=== PATIENT | male | born 1985 | race Hispanic/Latino ===

== ENCOUNTER 2016-11-26 00:38 | Emergency (ER) | payer OTHER ==
[~2016-11-26] VITALS: Ht 177.8 cm; Wt 79.5 kg
[2016-11-26 00:44] VITALS: BP 114/73; PULSE 102; RESP 18; O2SAT 96
--- NOTE | 2016-11-26 00:53 | ED.REPORT ---
HPI-General Illness Date of Service November 26, 2016 ED Provider: Chaitanya Gracia MD 31 year old homeless male with a history of polysubstance abuse and Hepatitis C presents to the ER via EMS after being found down at a local [employer] just prior to arrival. Patient endorses heavy alcohol consumption tonight. He does not voice any medical complaints. Nursing Notes Stated Complaint: ETOH INTOXICATION Chief Complaint: Substance Abuse Nursing Notes Reviewed: Yes Allergies: Coded Allergies: No Known Allergies (Unverified , 11/26/16) General Time Seen by MD: 00:52 Chief Complaint Other (Alcohol Intoxication) Hx Obtained From: EMS Arrived By: Ambulance Sudden in Onset?: No Onset Occurred: Just prior to arrival Pertinent Negative: Pt denies other symptoms Similar Sx Previous: Yes Past Medical History Past Medical History Hepatitis C Smoking History Current Every Day Smoker Social History Alcohol Use: >5 per day Drug Use: Cocaine, Meth, THC Other Social History: Homeless Review of Systems Unable to Obtain ROS Intoxicated Physical Exam Vital Signs Vital Signs Date Time Temp Pulse Resp B/P Pulse Ox O2 Delivery O2 Flow Rate FiO2 11/26/16 06:12 37.1 85 18 104/61 96 Room Air 11/26/16 00:44 36.1 102 18 114/73 96 Room Air Initial VS: Reviewed Head / Eyes: Atraumatic, Normocephalic Neck: Supple, Non-tender, Full range of motion Abdomen / GI: Soft, Non-tender, No guarding, No rebound, No distention Extremities: Vascular intact, Neuro intact, No swelling, No tenderness Skin: Warm, Dry, No cyanosis Neurologic: Alert, Oriented, Nonfocal General/Constitutional: No acute distress, Well developed Alertness: Positive: Sleeping but arousable Behavior: Positive: Appears intoxicated Appearance / Presentation: Positive: Intoxicated Smells of EtOH Respiratory / Chest: Breath sounds NL, No respiratory distress, No rales, No rhonchi, No wheezing Re-Eval/Medical Decision Med Decision/Clinical Course 2-year-old chronic alcoholism presents grossly intoxicated. He states he plans to continue drinking and has no interest in quitting. No other particular complaints. He was observed overnight while metabolizing his alcohol, and is discharged now stable condition. Sobriety advised but advice not wanted. Source of Hx: Old records Time of Eval: 05:52 Re-Evaluation/Progress Note: Discussed plan to discharge. Patient is amenable to the plan. Return precautions given. All other questions addressed. Counseled Regarding: Diagnosis, Lab results, Need for follow-up, When/why to return to ED Discharge & Departure Primary Impression: Alcohol abuse Additional Impression: Alcohol intoxication Disposition: Home Discharge Condition All VS Reviewed: Yes Condition: Stable Additional Instructions: Stop drinking. Get help with that if you need. Follow-up with your doctor in the office. Referrals: Osvaldo Zarco MD (PCP) Jae Attestation Portions of this note were transcribed by Tremaine Green. I, Dr. Gracia, personally performed the history, physical exam and medical decision-making; I reviewed and confirmed the accuracy of the information in the transcribed note. Signed by: Jae Parsons, 11/26/2016 at 05:52 copies to: Osvaldo Zarco MD, Christopher W MD November 26, 2016 00:53 TREMAINE GREEN November 26, 2016 01:01
[2016-11-26 06:12] VITALS: BP 104/61; PULSE 85; RESP 18; O2SAT 96
== END 2016-11-26 05:52 | disposition home or self-care (01) ==
LOC: SED 00:38
DX: F10.129 Alcohol abuse with intoxication, unspecified (principal); F15.10 Other stimulant abuse, uncomplicated; F14.10 Cocaine abuse, uncomplicated; F12.10 Cannabis abuse, uncomplicated; B18.2 Chronic viral hepatitis C; F17.210 Nicotine dependence, cigarettes, uncomplicated; Z59.0 Homelessness

== ENCOUNTER 2017-02-08 20:01 | Emergency (ER) | payer OTHER ==
[~2017-02-08] VITALS: Ht 172.7 cm; Wt 75.0 kg
[2017-02-08 20:09] VITALS: BP 145/84; PULSE 85; RESP 18; O2SAT 98
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
[2017-02-08] MEDS ORDERED: Ondansetron 2 mg/mL 2 mL Inj IVPUSH PRN (20:50)
[2017-02-08 21:15] LABS: BASOPHILS % (AUTO) 0.3 % (0-3); EOSINOPHILS % (AUTO) 7.1 % (0-5); MONOCYTES % (AUTO) 13.9 % (4-12); Mean Corpuscular Hemoglobin 28.1 pg (27.0-35.0); Mean Corpuscular Volume 85.8 fL (81-100); NEUTROPHILS % (AUTO) 51.8 % (40-74); Platelet Count 160 bil/L (150-400)
[2017-02-08 21:37] LABS: INR 0.89 ratio
[2017-02-08] MEDS ORDERED: Thiamine Inj 100 MG, Folic Acid Inj 1 MG, Magnesium Sulfate 50% Inj 2 GM, Multivitamins... IV ONE ×5 (21:50)
[2017-02-08 21:59] VITALS: BP 125/72; PULSE 73; RESP 16; O2SAT 97
[2017-02-08 22:40] LABS: Magnesium 1.7 mg/dL (1.6-2.6)
[2017-02-08 22:56] VITALS: BP 128/72; PULSE 72; RESP 20; O2SAT 98
[2017-02-09] MEDS ORDERED: _LORazepam 2 MG Tablet PO SCH (00:05)
[2017-02-09 00:26] VITALS: BP 115/50; PULSE 67; RESP 18; O2SAT 99
[2017-02-09 00:59] VITALS: BP 123/63; PULSE 65; RESP 14; O2SAT 99
[2017-02-09 02:20] VITALS: BP 133/86; PULSE 68; RESP 20; O2SAT 98
== END 2017-02-09 02:21 | disposition home or self-care (01) ==
LOC: SED 20:01
DX: F10.230 Alcohol dependence with withdrawal, uncomplicated (principal); K64.9 Unspecified hemorrhoids; F17.200 Nicotine dependence, unspecified, uncomplicated; Z59.0 Homelessness
CPT/HCPCS: 36415; 80053; 83690; 83735; 85025; 85610; 85730; 86850; 93005; 96365; 96366; 96375; 96376; 99285; J3360; J3475; J7030

== ENCOUNTER 2017-03-06 17:21 | Emergency (ER) | payer OTHER ==
[~2017-03-06] VITALS: Ht 170.2 cm; Wt 77.3 kg
[2017-03-06 17:30] VITALS: BP 135/81; PULSE 112; RESP 20; O2SAT 96
== END 2017-03-06 18:37 | disposition left against medical advice (07) ==
LOC: SED 17:21
DX: F19.10 Other psychoactive substance abuse, uncomplicated (principal); Z53.21 Procedure and treatment not carried out due to patient leaving prior to being seen by health care provider

== ENCOUNTER 2017-03-22 05:43 | Emergency (ER) | payer OTHER ==
[2017-03-22 05:54] VITALS: BP 131/89; PULSE 65; RESP 16; O2SAT 92
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
[2017-03-22 07:15] VITALS: BP 124/73; PULSE 73; RESP 12; O2SAT 100
[2017-03-22 07:37] LABS: BASOPHILS % (AUTO) 1.4 % (0-3); EOSINOPHILS % (AUTO) 0.4 % (0-5); MONOCYTES % (AUTO) 15.8 % (4-12); Mean Corpuscular Hemoglobin 27.7 pg (27.0-35.0); Mean Corpuscular Volume 81.7 fL (81-100); NEUTROPHILS % (AUTO) 19.9 % (40-74); Platelet Count 187 bil/L (150-400)
[2017-03-22 08:10] LABS: Magnesium 1.8 mg/dL (1.6-2.6)
[2017-03-22 09:09] VITALS: BP 130/71; PULSE 96; RESP 19; O2SAT 100
[2017-03-22 10:08] LABS: INR 0.89 ratio
[2017-03-22 10:50] VITALS: BP 132/73; PULSE 84; RESP 16; O2SAT 93
[2017-03-22] MEDS ORDERED: Ondansetron 8 mg ODT Tablet ONE (11:32)
[2017-03-22] MEDS ORDERED: Ondansetron 8 mg ODT Tablet PO ONE (11:45)
== END 2017-03-22 13:40 | disposition home or self-care (01) ==
LOC: SED 05:43
DX: F10.129 Alcohol abuse with intoxication, unspecified (principal); F14.21 Cocaine dependence, in remission; F15.21 Other stimulant dependence, in remission; F17.200 Nicotine dependence, unspecified, uncomplicated; Y90.8 Blood alcohol level of 240 mg/100 ml or more
CPT/HCPCS: 36415; 80053; 82075; 83735; 85025; 85610; 99284; G0480